=== PATIENT | female | born 2000 | race Caucasian/White ===

== ENCOUNTER 2020-04-18 20:01 | Emergency (ER) | payer SELFPAY ==
[~2020-04-18] VITALS: Ht 160 cm; Wt 62.0 kg
[2020-04-18 20:05] VITALS: BP 119/75
[2020-04-18] MEDS ORDERED: ONDANSETRON PF 4 MG/2 ML VIAL. IVP ONE (20:30)
[2020-04-18] MEDS ORDERED: IV NORMAL SALINE 1,000ML 1,000 ML IV ONE (20:30)
[2020-04-18] MEDS ORDERED: ONDANSETRON PF 4 MG/2 ML VIAL. ONE (20:33)
--- NOTE | 2020-04-18 20:48 | EKG ---
[address] [address] Test Date: 2020-04-18 Test Time: 20:41:28 Pat Name: BRIGETTE MONET Department: Room: Gender: F Stapler Hand: THOM : 2000 Requested By: RILEY BAKER Order Number: [id number] Reading MD: Measurements Intervals [place] Rate: 74 P: MN: QRS: 63 QRSD: 84 T: 32 QT: 352 QTc: 391 Interpretive Statements IRREGULAR RHYTHM, NO P-WAVE FOUND OTHERWISE NORMAL ECG RI6.02 No previous ECG available for comparison
--- NOTE | 2020-04-18 20:57 | PHYS DOC ---
Adult General Chief Complaint Chief Complaint: CHEST PAIN HPI HPI Patient is a 19 year old female who presents with complaints of feeling anxious and depressed since breaking up with boyfriend approximately 6 days ago. Patient states that since her relationship break-up, she started drinking whiskey every single day. Patient states she is unaware how much she was drinking just states that she would start in the morning and finish sometime in the afternoon when she would pass out. 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 Patient states that she would like to get help with her mental health concerns as she has a 4-year-old son at home that she wishes to take care of. Patient states that she lives at home with her father, stepmother, grandmother, and stepbrother. Patient states that she does not have any problems at her home, feels safe at home, and is not in an abusive relationship. Patient denies homicidal or suicidal ideations. Patient does states she feels shaky and jittery and also nauseated, patient states she vomited x1 today. Patient denies recent fever or chills, visual changes, denies nasal congestion, cough, shortness of breath, patient does complain of off and on chest pain, or swelling of her extremities. Patient denies any abdominal pains, diarrhea or constipation. Patient denies any problems urinating, denies vaginal discharge, denies STI concerns. Patient denies pain in her back, skin rashes, headaches, focal weaknesses or sensory changes. Patient denies any swelling of her glands. Patient denies any COVID-19 virus symptoms, patient does not wish to be tested for the COVID-19 virus today. (RILEY BAKER APRN) Review of Systems Review of Systems Constitutional: Denies fever or chills Eyes: Denies change in visual acuity, redness, or eye pain HENT: Denies nasal congestion or sore throat Respiratory: Denies cough or shortness of breath Cardiovascular: Complains of off and on chest pain however denies chest pain at this time GI: Denies abdominal pain, constipation or diarrhea complains of nausea cur rently, and vomiting x1 prior to arrival. : Denies dysuria or hematuria, denies STI concerns, denies vaginal discharge. Musculoskeletal: Denies back pain or joint pain [] Integument: Denies rash or skin lesions [] Neurologic: Denies headache, focal weakness or sensory changes Psychiatric: Patient denies homicidal or suicidal ideation, patient complains of recent depression since breaking up with her boyfriend 6 days ago along with feeling anxious. All other systems were reviewed and found to be within normal limits, except as documented in this note. (RILEY BAKER APRN) Family History Family History Patient reports a history of MS on her father side, denies knowing her mother's health history. (RILEY BAKER APRN) Current Medications Current Medications Current Medications Medications (Trade) Dose Ordered Sig/Robbi Start Time Stop Time Status Last Admin Dose Admin Ondansetron HCl (Zofran) 4 mg STK-MED ONCE 04/18/20 20:33 04/18/20 20:33 DC Sodium Chloride 1,000 ml @ 1,000 mls/hr 1X ONCE 04/18/20 20:30 04/18/20 21:29 (RILEY BAKER APRN) Allergies Allergies Allergies Coded Allergies Type Severity Reaction Last Updated Verified guaifenesin Allergy Intermediate hives 04/18/20 Yes (RILEY BAKER APRN) Physical Exam Physical Exam Constitutional: Well developed, well nourished, no acute distress, non-toxic appearance. Patient became tearful during interview when questioned about her recent break-up with boyfriend. HENT: Normocephalic, atraumatic, bilateral external ears normal, oropharynx moist, no oral exudates, nose normal. Eyes: PERRLA, EOMI, conjunctiva normal, no discharge. Pupils 4 mm bilateral Neck: Normal range of motion, no tenderness, supple, no stridor. Cardiovascular:Heart rate regular rhythm, no murmur Lungs & Thorax: Bilateral breath sounds clear to auscultation Abdomen: Bowel sounds normal, soft, no tenderness, no masses, no pulsatile masses. Skin: Warm, dry, no erythema, no rash. Back: No tenderness, no CVA tenderness. Extremities: No tenderness, no cyanosis, no clubbing, ROM intact, no edema. Neurologic: Alert and oriented X 3, normal motor function, normal sensory function, no focal deficits noted. Psychologic: Affect normal, judgement normal, mood normal. Patient appears anxious during physical interview, however does not give impression of homicidal or suicidal ideation. (RILEY BAKER APRN) Current Patient Data Lab Results Laboratory Tests Test 04/18/20 20:06 04/18/20 20:22 04/18/20 20:50 Urine Collection Type Unknown Urine Color Ramonita Urine Clarity Cloudy Urine pH 7.0 Urine Specific [place] 1.025 Urine Protein 30 mg/dl Urine Glucose (UA) Neg mg/dL Urine Ketones (Stick) Trace mg/dL Urine Blood Large Urine Nitrite Neg Urine Bilirubin Neg Urine Urobilinogen Dipstick 1.0 mg/dL Urine Leukocyte Esterase Neg Urine RBC Tntc /HPF Urine WBC 0 /HPF Urine Squamous Epithelial Cells Few /LPF Urine Bacteria 0 /HPF Urine Opiates Screen Neg Urine Methadone Screen Neg Urine Barbiturates Neg Urine Phencyclidine Screen Neg Urine Amphetamine/Methamphetamine Neg Urine Benzodiazepines Screen Neg Urine Cocaine Screen Neg Urine Cannabinoids Screen Pos Urine Ethyl Alcohol Neg Bedside Urine HCG, Qualitative hcg negative White Blood Count 6.6 x10^3/uL Red Blood Count 4.63 x10^6/uL Hemoglobin 14.3 g/dL Hematocrit 42.7 % Mean Corpuscular Volume 92 fL Mean Corpuscular Hemoglobin 31 pg Mean Corpuscular Hemoglobin Concent 33 g/dL Red Cell Distribution Width 13.9 % Platelet Count 298 x10^3/uL Neutrophils (%) (Auto) 53 % Lymphocytes (%) (Auto) 33 % Monocytes (%) (Auto) 11 % Eosinophils (%) (Auto) 2 % Basophils (%) (Auto) 1 % Neutrophils # (Auto) 3.5 x10^3uL Lymphocytes # (Auto) 2.2 x10^3/uL Monocytes # (Auto) 0.7 x10^3/uL Eosinophils # (Auto) 0.1 x10^3/uL Basophils # (Auto) 0.1 x10^3/uL Sodium Level 138 mmol/L Potassium Level 3.7 mmol/L Chloride Level 101 mmol/L Carbon Dioxide Level 26 mmol/L Anion Gap 11 Blood Urea Nitrogen 10 mg/dL Creatinine 0.9 mg/dL Estimated GFR (Cockcroft-Gault) 79.0 BUN/Creatinine Ratio 11 Glucose Level 84 mg/dL Calcium Level 9.0 mg/dL Total Bilirubin 2.1 mg/dL Aspartate Amino Transf (AST/SGOT) 26 U/L Alanine Aminotransferase (ALT/SGPT) 30 U/L Alkaline Phosphatase 78 U/L Troponin I Quantitative < 0.017 ng/mL Total Protein 7.4 g/dL Albumin 4.2 g/dL Albumin/Globulin Ratio 1.3 Current Medications Medications (Trade) Dose Ordered Sig/Robbi Route PRN Reason Start Time Stop Time Status Last Admin Dose Admin Sodium Chloride 1,000 ml @ 1,000 mls/hr 1X ONCE IV 04/18/20 20:30 04/18/20 21:29 DC 04/18/20 20:30 Ondansetron HCl (Zofran) 4 mg 1X ONCE IVP 04/18/20 20:30 04/18/20 20:33 DC 04/18/20 20:30 Ondansetron HCl (Zofran) 4 mg STK-MED ONCE .ROUTE 04/18/20 20:33 04/18/20 20:33 DC Multivitamins/ Minerals 10 ml/ Folic Acid 1 mg/ Thiamine HCl 100 mg/Lactated Ringer's 1,011.3 ml @ 1,011.3 mls/hr 1X ONCE IV 04/18/20 21:15 04/18/20 21:51 DC 04/18/20 21:15 Lorazepam (Ativan Inj) 1 mg 1X ONCE IVP 04/18/20 21:15 04/18/20 21:51 DC 04/18/20 21:15 Thiamine HCl (Thiamine Vial) 200 mg STK-MED ONCE IV 04/18/20 21:24 04/18/20 21:24 DC Multivitamins/ Minerals (Infuvite Adult) 10 ml STK-MED ONCE IV 04/18/20 21:24 04/18/20 21:24 DC Multivitamins/ Minerals 10 ml/ Thiamine HCl 100 mg/Lactated Ringer's 1,011.3 ml @ 1,011.3 mls/hr 1X ONCE IV 04/18/20 21:51 04/18/20 22:14 DC Folic Acid (Folic Acid) 1 mg 1X ONCE PO 04/18/20 21:51 04/18/20 21:53 DC 04/18/20 22:20 Diphenhydramine HCl (Benadryl) 25 mg 1X ONCE IVP 04/18/20 22:30 04/18/20 22:31 DC 04/18/20 22:20 Laboratory Tests Test 04/18/20 20:06 04/18/20 20:22 04/18/20 20:50 Urine Collection Type Unknown Urine Color Ramonita Urine Clarity Cloudy Urine pH 7.0 Urine Specific [place] 1.025 Urine Protein 30 mg/dl Urine Glucose (UA) Neg mg/dL Urine Ketones (Stick) Trace mg/dL Urine Blood Large Urine Nitrite Neg Urine Bilirubin Neg Urine Urobilinogen Dipstick 1.0 mg/dL Urine Leukocyte Esterase Neg Urine RBC Tntc /HPF Urine WBC 0 /HPF Urine Squamous Epithelial Cells Few /LPF Urine Bacteria 0 /HPF Urine Opiates Screen Neg Urine Methadone Screen Neg Urine Barbiturates Neg Urine Phencyclidine Screen Neg Urine Amphetamine/Methamphetamine Neg Urine Benzodiazepines Screen Neg Urine Cocaine Screen Neg Urine Cannabinoids Screen Pos Urine Ethyl Alcohol Neg Bedside Urine HCG, Qualitative hcg negative White Blood Count 6.6 x10^3/uL Red Blood Count 4.63 x10^6/uL Hemoglobin 14.3 g/dL Hematocrit 42.7 % Mean Corpuscular Volume 92 fL Mean Corpuscular Hemoglobin 31 pg Mean Corpuscular Hemoglobin Concent 33 g/dL Red Cell Distribution Width 13.9 % Platelet Count 298 x10^3/uL Neutrophils (%) (Auto) 53 % Lymphocytes (%) (Auto) 33 % Monocytes (%) (Auto) 11 % Eosinophils (%) (Auto) 2 % Basophils (%) (Auto) 1 % Neutrophils # (Auto) 3.5 x10^3uL Lymphocytes # (Auto) 2.2 x10^3/uL Monocytes # (Auto) 0.7 x10^3/uL Eosinophils # (Auto) 0.1 x10^3/uL Basophils # (Auto) 0.1 x10^3/uL Sodium Level 138 mmol/L Potassium Level 3.7 mmol/L Chloride Level 101 mmol/L Carbon Dioxide Level 26 mmol/L Anion Gap 11 Blood Urea Nitrogen 10 mg/dL Creatinine 0.9 mg/dL Estimated GFR (Cockcroft-Gault) 79.0 BUN/Creatinine Ratio 11 Glucose Level 84 mg/dL Calcium Level 9.0 mg/dL Total Bilirubin 2.1 mg/dL Aspartate Amino Transf (AST/SGOT) 26 U/L Alanine Aminotransferase (ALT/SGPT) 30 U/L Alkaline Phosphatase 78 U/L Troponin I Quantitative < 0.017 ng/mL Total Protein 7.4 g/dL Albumin 4.2 g/dL Albumin/Globulin Ratio 1.3 Current Medications Medications (Trade) Dose Ordered Sig/Robbi Route PRN Reason Start Time Stop Time Status Last Admin Dose Admin Sodium Chloride 1,000 ml @ 1,000 mls/hr 1X ONCE IV 04/18/20 20:30 04/18/20 21:29 DC 04/18/20 20:30 Ondansetron HCl (Zofran) 4 mg 1X ONCE IVP 04/18/20 20:30 04/18/20 20:33 DC 04/18/20 20:30 Ondansetron HCl (Zofran) 4 mg STK-MED ONCE .ROUTE 04/18/20 20:33 04/18/20 20:33 DC Multivitamins/ Minerals 10 ml/ Folic Acid 1 mg/ Thiamine HCl 100 mg/Lactated Ringer's 1,011.3 ml @ 1,011.3 mls/hr 1X ONCE IV 04/18/20 21:15 04/18/20 21:51 DC 04/18/20 21:15 Lorazepam (Ativan Inj) 1 mg 1X ONCE IVP 04/18/20 21:15 04/18/20 21:51 DC 04/18/20 21:15 Thiamine HCl (Thiamine Vial) 200 mg STK-MED ONCE IV 04/18/20 21:24 04/18/20 21:24 DC Multivitamins/ Minerals (Infuvite Adult) 10 ml STK-MED ONCE IV 04/18/20 21:24 04/18/20 21:24 DC Multivitamins/ Minerals 10 ml/ Thiamine HCl 100 mg/Lactated Ringer's 1,011.3 ml @ 1,011.3 mls/hr 1X ONCE IV 04/18/20 21:51 04/18/20 22:14 Folic Acid (Folic Acid) 1 mg 1X ONCE PO 04/18/20 21:51 04/18/20 21:53 DC Laboratory Tests Test 04/18/20 20:22 POC Urine HCG, Qualitative hcg negative (Negative) (RILEY BAKER APRN) EKG EKG EKG performed at 2040 per ED nursing staff shows sinus rhythm with an occasional PAC with a heart rate of 74. No ischemia no coronary syndrome no STEMI noted, [place] interval 0.12, QTc interval 0.391, EKG interpreted by ED attending Dr. Altman at 2043. (RILEY BAKER APRN) Radiology/Procedures Radiology/Procedures [] (RILEY BAKER APRN) Heart Score Risk Factors: Risk Factors: DM, Current or recent (<one month) smoker, HTN, HLP, family history of CAD, obesity. Risk Scores: Risk Factors: DM, Current or recent (<one month) smoker, HTN, HLP, family history of CAD, obesity. (RILEY BAKER APRN) Course & Med Decision Making Course & Med Decision Making Pertinent Labs and Imaging studies reviewed. (See chart for details) 19-year-old female presents emergency department with complaints of anxiety and depression since breaking up with her boyfriend 6 days ago, physical presentation showed patient was anxious, tearful during exam, cannot rule out alcohol withdrawal syndrome, I will ER work-up was performed labs were negative for coronary problems, patient was given 1 L normal saline followed by 1 banana bag, 1 mg of Ativan was given IV, this seemed to resolve the patient's symptoms, patient did however states she felt quite funny after her Ativan dose, 25 mg of IV Benadryl was given. Patient did ask for mental health resources to help her deal with her recent depressions and anxieties, patient adamantly denied homicidal or suicidal ideation. Lab results were negative for acute infectious process, patient was not , discussed findings with patient, patient gave verbal understanding of discharge home instructions, follow-up with the guidance Center soon instructions, strict return to ED are instructions related to homicidal or suicidal ideation, patient had no further questions or concerns, patient discharged home with family without incident. (RILEY BAKER APRN) Dragon Disclaimer Dragon Disclaimer This electronic medical record was generated, in whole or in part, using a voice recognition dictation system. (RILEY BAKER APRN) Attending Co-Sign The patient was seen and interviewed as well as examined at the bedside. The chart was reviewed. The case was discussed. Agree with the plan of care. (BEN ALTMAN DO) Departure Departure: Impression: Primary Impression: Anxiety and depression Disposition: 01 DC HOME SELF CARE/HOMELESS Condition: IMPROVED Referrals: PCP,NO (PCP) Patient Instructions: Anxiety and Panic Attacks Additional Instructions: Please follow-up with the guidance Center for help with your depression and anxiety and recent mental health concerns. Please return to the emergency de partment immediately for worsening symptoms, homicidal or suicidal ideations. RILEY BAKER APRN Apr 18, 2020 20:57 BEN ALTMAN DO Apr 19, 2020 02:19
[2020-04-18 20:59] LABS: BARBITURATES NEG (NEG); BENZODIAZEPINES NEG (NEG); CANNABINOIDS POS (NEG); COCAINE NEG (NEG); METHADONE NEG (NEG); OPIATES NEG (NEG); PHENCYCLIDINE NEG (NEG)
[2020-04-18 21:05] LABS: AMPHETAMINE/METHAMPHETAMINE NEG (NEG)
[2020-04-18 21:11] LABS: BACTERIA,URINE 0 /HPF (0-FEW); BILIRUBIN,URINE NEG (NEG); CLARITY,URINE CLOUDY; COLOR,URINE AMBER; GLUCOSE,URINE NEG (NEG); NITRITE,URINE NEG (NEG); RBC,URINE TNTC /HPF (0-2); SQUAMOUS EPITHELIAL CELL,UR FEW /LPF; WBC,URINE 0 /HPF (0-4)
[2020-04-18] MEDS ORDERED: MVI, ADULT NO.4 WITH VIT K 10 ML, FOLIC ACID INJ 1 MG, THIAMINE INJ 100 MG in IV RINGER... IV ONE (21:15)
[2020-04-18 21:16] LABS: BASO # 0.1 x10^3/uL (0.0-0.2); BASO % 1 % (0-3); EOS # 0.1 x10^3/uL (0.0-0.7); EOS % 2 % (0-3); HEMATOCRIT 42.7 % (36.0-47.0); HEMOGLOBIN 14.3 g/dL (12.0-15.5); LYMPH # 2.2 x10^3/uL (1.0-4.8); LYMPH % 33 % (24-48); MEAN CORPUSCULAR HEMOGLOBIN 31 pg (25-35); MEAN CORPUSCULAR HGB CONC 33 g/dL (31-37); MEAN CORPUSCULAR VOLUME 92 fL (79-100); MONO # 0.7 x10^3/uL (0.0-1.1); MONO % 11 % (0-9); NEUT # 3.5 x10^3uL (1.8-7.7); NEUT % 53 % (31-73); PLATELET COUNT 298 x10^3/uL (140-400); RED BLOOD COUNT 4.63 x10^6/uL (3.50-5.40); RED CELL DISTRIBUTION WIDTH 13.9 % (11.5-14.5); WHITE BLOOD COUNT 6.6 x10^3/uL (4.0-11.0)
[2020-04-18] MEDS ORDERED: MVI, ADULT NO.4 WITH VIT K 10 ML VIAL IV ONE (21:24)
[2020-04-18] MEDS ORDERED: THIAMINE 200 MG/2 ML VIAL. IV ONE (21:24)
[2020-04-18 21:30] LABS: ALBUMIN 4.2 g/dL (3.4-5.0); TOTAL PROTEIN 7.4 g/dL (6.4-8.2)
[2020-04-18 21:31] LABS: ALBUMIN/GLOBULIN RATIO 1.3 (1.0-1.7); CREATININE 0.9 mg/dL (0.6-1.0); POTASSIUM 3.7 mmol/L (3.5-5.1); TOTAL BILIRUBIN 2.1 mg/dL (0.2-1.0)
[2020-04-18] MEDS ORDERED: MVI, ADULT NO.4 WITH VIT K 10 ML, THIAMINE INJ 100 MG in IV RINGERS SOLUTION,LACTATED 1... IV ONE (21:51)
[2020-04-18] MEDS ORDERED: FOLIC ACID 1 MG TABLET PO ONE (21:51)
[2020-04-18] MEDS ORDERED: diphenhydrAMINE 50 MG/ML VIAL IVP ONE (22:30)
== END 2020-04-18 22:35 | disposition home or self-care (01) ==
LOC: ER 20:01
DX: F41.9 Anxiety disorder, unspecified (principal); F32.9 Major depressive disorder, single episode, unspecified; Z88.8 Allergy status to other drugs, medicaments and biological substances
CPT/HCPCS: 36415; 80053; 80307; 81001; 81025; 84484; 85025; 93005; 96361; 96365; 96375; 99284; J1200; J2060; J2405; J7030; J7120; 99285